=== PATIENT | female | born 1975 | race African-American/Black ===

== ENCOUNTER 2017-01-14 08:44 | Emergency (ER) | payer OTHER, BC ==
[2017-01-14 09:08] VITALS: TEMP 97; BMI 38.0
[2017-01-14] MEDS ORDERED: diazePAM 5 MG TABLET PO ONE (09:16)
[2017-01-14] MEDS ORDERED: ONDANSETRON 4 MG/2 ML VIAL IVPUSH ONE (09:16)
[2017-01-14] MEDS ORDERED: KETOROLAC TROMETHAMINE 30 MG/1 ML VIAL IVPUSH ONE (09:16)
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
[2017-01-14] MEDS ORDERED: KETOROLAC TROMETHAMINE 30 MG/1 ML VIAL ONE (09:25)
[2017-01-14] MEDS ORDERED: diazePAM 5 MG TABLET ONE (09:25)
[2017-01-14] MEDS ORDERED: ONDANSETRON 4 MG/2 ML VIAL ONE (09:25)
[2017-01-14] MEDS ORDERED: ACETAMINOPHEN 325 MG TABLET (FP) PO ONE (11:57)
[2017-01-14] MEDS ORDERED: ACETAMINOPHEN 325 MG TABLET (FP) ONE (11:59)
[2017-01-14] MEDS: ACETAMINOPHEN 500 MG TABLET (FP) PO ONE ×2 (12:05→12:08)
[2017-01-14 13:18] VITALS: BP 133/77; PULSE 75
== END 2017-01-14 13:10 | disposition home or self-care (01) ==
LOC: JER 08:44
PROC: 3E0333Z Introduction of Anti-inflammatory into Peripheral Vein, Percutaneous Approach (ICD-10-PCS; principal; 2017-01-14)
PROC: 3E033GC Introduction of Other Therapeutic Substance into Peripheral Vein, Percutaneous Approach (ICD-10-PCS; 2017-01-14)
DX: S16.1XXA Strain of muscle, fascia and tendon at neck level, initial encounter (principal); S39.012A Strain of muscle, fascia and tendon of lower back, initial encounter; M54.41 Lumbago with sciatica, right side; I10 Essential (primary) hypertension; V43.52XA Car driver injured in collision with other type car in traffic accident, initial encounter; Y92.488 Other paved roadways as the place of occurrence of the external cause; Y93.89 Activity, other specified
CPT/HCPCS: 72125-TC; 72131-TC; 84703; 99282-25